=== PATIENT | female | born 1945 | race Caucasian/White ===

== ENCOUNTER 2017-09-26 07:43 | Emergency (ER) | payer MEDICARE, OTHER ==
[2017-09-26 07:43] VITALS: BMI 37.2
[2017-09-26 07:51] VITALS: RESP 20; TEMP 97.8
--- NOTE | 2017-09-26 09:15 | RAD ---
PROCEDURE: Radiographs of the right tibia and fibula. HISTORY: right leg injury COMPARISON: None available. TECHNIQUE: Frontal and lateral views obtained. FINDINGS: BONES: No fracture or destructive lesion. JOINT SPACES: Unremarkable. OTHER FINDINGS: Incidentally noted pes planus deformity with talonavicular osteoarthritis and plantar calcaneal spur. IMPRESSION: No fracture/ dislocation. Pes planus. Talonavicular osteoarthritis. Pes planus deformity.
--- NOTE | 2017-09-26 09:15 | C.PDOC ---
History Of Present Illness 72-year-old female, presents to the emergency department with complaints of leg pain. Patient states she was walking to dialysis yesterday and fell, due to increased arthritic pain. Pt reports she comes in today because she is able to ambulate, but it is painful. She is ambulatory at baseline with cane. Denies numbness/weakness, shortness of breath or chest pain. No other complaints at this time. Time Seen by Provider: 09/26/17 08:13 Chief Complaint (Nursing): Lower Extremity Problem/Injury History Per: Patient History/Exam Limitations: no limitations Past Medical History Reviewed: Historical Data, Nursing Documentation, Vital Signs Vital Signs: Last Vital Signs Temp 97.8 F 09/26/17 07:46 Pulse 89 09/26/17 10:37 Resp 20 09/26/17 10:37 BP 119/82 09/26/17 10:37 Pulse Ox 100 09/26/17 12:03 - Medical History PMH: Arthritis, HTN, Hypercholesterolemia, Chronic Kidney Disease Family History: States: No Known Family Hx - Social History Hx Alcohol Use: No Hx Substance Use: No - Immunization History Hx Tetanus Toxoid Vaccination: No Hx Influenza Vaccination: Yes (06/2017) Hx Pneumococcal Vaccination: Yes (06/2017) Review Of Systems Constitutional: Negative for: Fever Gastrointestinal: Negative for: Vomiting Neurological: Negative for: Weakness, Numbness Physical Exam - Physical Exam Appears: Non-toxic, No Acute Distress Skin: Normal Color, Warm, Dry, No Rash Head: Normacephalic Eye(s): bilateral: PERRL Nose: Normal Oral Mucosa: Moist Lips: Normal Appearing Neck: Normal ROM Chest: Symmetrical Cardiovascular: Rhythm Regular, No Murmur Respiratory: Normal Breath Sounds, No Accessory Muscle Use Extremity: No Deformity, No Swelling, Other (FROM of the B/L ankles, knees and hips. No swelling. there is minimal tenderness to lateral left thigh. Right tib/ fib with mild tenderness) Pulses: Left Dorsalis Pedis: Normal, Right Dorsalis Pedis: Normal Neurological/Psych: Oriented x3, Normal Speech ED Course And Treatment O2 Sat by Pulse Oximetry: 100 (RA) Pulse Ox Interpretation: Normal Medical Decision Making Medical Decision Making: Plan: * Tylenol * XRs * Reassess and DIsposition XRs are negative for fracture or dislocation. Pt feels better after Tylenol. Will be discharged for outpatient f/u with PMD. On re-exam, the patient is ambulatory with ease and steady gait in the ED using a cane. Disposition - Disposition Referrals: Guy Maynard III, MD [Staff Provider] - Disposition: HOME/ ROUTINE Disposition Time: 10:22 Condition: GOOD Additional Instructions: Follow up with the medical doctor within 1-2 days without fail. Return of worsened Prescriptions: Acetaminophen [Tylenol] 325 mg PO Q6 PRN #30 tab PRN Reason: Pain, Mild (1-3) Instructions: Hip Pain (DC) Forms: [employer] (Kazakh) Print Language: EMIRATI - Clinical Impression Clinical Impression: Contusion, hip, Contusion of leg - Scribe Statement The provider has reviewed the documentation as recorded by the Scribe (Ritu Cabezas) All medical record entries made by the Scribe were at my direction and personally dictated by me. I have reviewed the chart and agree that the record accurately reflects my personal performance of the history, physical exam, medical decision making, and the department course for this patient. I have also personally directed, reviewed, and agree with the discharge instructions and disposition.
--- NOTE | 2017-09-26 09:18 | RAD ---
PROCEDURE: Left Hip X-ray Radiographs. HISTORY: hip injury, COMPARISON: None. FINDINGS: BONES: Normal. No fracture. JOINTS: Normal. SOFT TISSUES: Normal. OTHER FINDINGS: None. IMPRESSION: Normal left hip radiographs.
--- NOTE | 2017-09-26 09:20 | RAD ---
PROCEDURE: Left Femur Radiographs. HISTORY: injury, thigh pain COMPARISON: None. TECHNIQUE: AP and Lateral Radiographs of the left femur. FINDINGS: FEMUR: Normal. No fracture. SOFT TISSUES: Normal. OTHER FINDINGS: None. IMPRESSION: Unremarkable radiographs of the left femur.
--- NOTE | 2017-09-26 09:20 | RAD ---
PROCEDURE: Radiographs of the left tibia and fibula. HISTORY: left leg injury COMPARISON: None available. TECHNIQUE: Frontal and lateral views obtained. FINDINGS: BONES: No fracture or destructive lesion. JOINT SPACES: Unremarkable. OTHER FINDINGS: None. IMPRESSION: Unremarkable radiographs of the left tibia and fibula.
[2017-09-26 10:38] VITALS: BP 119/82; PULSE 89
[2017-09-26 11:34] VITALS: O2SAT 100
== END 2017-09-26 10:38 | disposition home or self-care (01) ==
LOC: C.ER 07:43
DX: S70.02XA Contusion of left hip, initial encounter (principal); S70.01XA Contusion of right hip, initial encounter; S80.12XA Contusion of left lower leg, initial encounter; S80.11XA Contusion of right lower leg, initial encounter; W18.30XA Fall on same level, unspecified, initial encounter

== ENCOUNTER 2018-08-13 07:31 | Inpatient (IN) | payer MEDICARE, OTHER ==
[2018-08-13 07:32] VITALS: BMI 37.2
[2018-08-13] MEDS ORDERED: Dextrose 50% SYRINGE Inj (50 ml) IVP STA (08:39)
[2018-08-13] MEDS ORDERED: Calcium Gluconate 4.65 MEQ in Dextrose 5% In Water 100 ML IV STA (08:39)
[2018-08-13] MEDS ORDERED: (Novolin R) Insulin Human Regular 100 units/ml vial IV STA (08:39)
--- NOTE | 2018-08-13 08:39 | C.PDOC ---
History Of Present Illness VIA TRANS LIMITED DUE TO CLIN COND WORSENING SOB X 3 DAYS. LAST HD 08/10. UNABLE TO GO TODAY DUE TO DIFF WALKING. +L CHEST DISCOMFORT X 3 WEEKS. NO FEVER, COUGH. PS ABLE TO MAKE URINE Cardiac: Hypertension, ASHD/CAD Endocrine/Metabolic: Diabetes, Renal Disease Previous Surgical History: CABG. Cholecystectomy. C section. Left inguinal hernia repaIR ROS LIMITED EXAM MOD DIST LUNGS TACHYPNEA, RETRACTIONS B/L RALES CV RRR +2+ PITTING EDEMA BL REMAINDER NEG MDM NO PRIOR EKG ON RECORD. ?POSISBLE HYPER K, UNTREATED ESRD RENAL DR HUGGINS Time Seen by Provider: 08/13/18 08:20 Chief Complaint (Nursing): Weakness/Neurological Deficit History Per: Patient History/Exam Limitations: clinical condition Onset/Duration Of Symptoms: Days Current Symptoms Are (Timing): Still Present Severity: Moderate Past Medical History Reviewed: Historical Data, Nursing Documentation, Vital Signs Vital Signs: Last Vital Signs Temp 97.9 F 08/13/18 07:58 Pulse 84 08/13/18 07:58 Resp 20 08/13/18 07:58 BP 144/64 08/13/18 07:58 Pulse Ox 96 08/13/18 07:58 - Medical History PMH: Arthritis, HTN, Hypercholesterolemia, End Stage Renal Disease, Chronic Kidney Disease Other Surgeries: Hx of surgeries Family History: States: No Known Family Hx - Social History Hx Alcohol Use: No Hx Substance Use: No - Immunization History Hx Tetanus Toxoid Vaccination: No Hx Influenza Vaccination: No Hx Pneumococcal Vaccination: Yes (06/2017) Review Of Systems Constitutional: Negative for: Fever, Chills Cardiovascular: Positive for: Other (left chest discomfort) Respiratory: Positive for: Shortness of Breath. Negative for: Cough Physical Exam - Physical Exam Appears: Other (moderate distress) Skin: Normal Color, Warm, Dry Head: Atraumatic, Normacephalic Eye(s): bilateral: Normal Inspection Nose: Normal Oral Mucosa: Moist Neck: Supple Chest: Symmetrical Cardiovascular: Rhythm Regular (RRR) Respiratory: Rales (bilateral rales), No Rhonchi, No Wheezing, Other (tachypnea) Extremity: Normal ROM, Other (2+ pitting edema bilaterally) Neurological/Psych: Oriented x3, Normal Speech ED Course And Treatment - Laboratory Results Result Diagrams: 08/13/18 08:54 08/13/18 08:54 ECG: Interpreted By Me ECG Interpretation: Abnormal Interpretation Of ECG: WIDE COMPLEX QRS 170 QTC 466 O2 Sat by Pulse Oximetry: 96 (RA) Pulse Ox Interpretation: Normal - Radiology CXR: Interpreted by Me CXR Interpretation: Yes: Cardiomegaly, Other (CHF NO PRIOR) Progress - Re-Evaluation Re-evaluation Note: 08/13/18 10:11 d/w dr rosa c/f icu WILL EVAL DW DR JACOBS MED PIPE BENDING MACHINE OPERATOR WILL ADMIT PENDING CALLBACK DR HUGGINS 08/13/18 10:14 D/W DR BELLAMY c/f DR HUGGINS WILL HD IN ICU 08/13/18 10:58 CLEARED FOR TELE PER DR COLIN BELLAMY AWARE - Data Reviewed Data Reviewed: Lab, Diagnostic imaging, EKG, Old records - Critical Care Citical Care: Excluding Proc Time Critical Care Time: 90 minutes Medical Decision Making Medical Decision Making: Plan: --Labs --UA --ECG --CXR --Albuterol --Calcium Gluconate IV --Dextrose IV --Insulin IV Disposition - Disposition Disposition: HOSPITALIZED Disposition Time: 10:23 Condition: STABLE - POA Present On Arrival: None - Clinical Impression Clinical Impression: Hyperkalemia, ESRD (end stage renal disease) on dialysis - Scribe Statement The provider has reviewed the documentation as recorded by the Jasminibe Antonio Agrawal Provider Attestation: All medical record entries made by the Scribe were at my direction and personally dictated by me. I have reviewed the chart and agree that the record accurately reflects my personal performance of the history, physical exam, medical decision making, and the department course for this patient. I have also personally directed, reviewed, and agree with the discharge instructions and disposition. PROCEDURES - EJ/Peripheral Line Consent Obtained: verbal consent Time Out Performed: Yes Skin Cleansed in Sterile Fashion: Yes Size: Other (BUTTERFLY) IV Secured and Dressing Applied: No Patient Tolerated Procedure: Well
[2018-08-13] MEDS ORDERED: Dextrose 50% SYRINGE Inj (50 ml) ONE (08:49)
[2018-08-13] MEDS ORDERED: (Novolin R) Insulin Human Regular 100 units/ml vial ONE (08:49)
--- NOTE | 2018-08-13 09:14 | RAD ---
Date of service: 08/13/2018 PROCEDURE: CHEST RADIOGRAPH, 1 VIEW HISTORY: Palpations COMPARISON: None available. FINDINGS: LUNGS: Shallow lung volumes PLEURA: No pneumothorax seen. No large pleural effusions appreciated. CARDIOVASCULAR: There is presence of aortic atherosclerotic calcification on x-ray. Cardiomegaly. Moderate pulmonary venous congestion with central hilar vascular engorgement the apparent. Concomitant main pulmonary artery prominence perceived. Pulmonary arterial hypertension not excluded. No comparison studies to assess for stability. Midline sternotomy noted. OSSEOUS STRUCTURES: Midline sternotomy. VISUALIZED UPPER ABDOMEN: Normal. OTHER FINDINGS: None. IMPRESSION: Cardiomegaly and pulmonary venous congestion-CHF inferred. Other findings as above.
[2018-08-13] MEDS ORDERED: Albuterol 0.083% Inhal Sol (2.5 mg/3 mL) UD ONE (09:24)
[2018-08-13] MEDS: Albuterol 0.083% Inhal Sol (2.5 mg/3 mL) UD INH SCH (09:26)
[2018-08-13 09:32] LABS: LYMPH # 2.5 K/uL (1.0-4.3); MONO # 0.5 K/uL (0.0-0.8)
[2018-08-13 09:35] LABS: BASO % 0.4 % (0.0-2.0); EOS # 0.1 K/uL (0.0-0.7); EOS % 0.5 % (0.0-4.0); HEMOGLOBIN 12.8 g/dL (11.0-16.0); LYMPH % 22.2 % (20.0-40.0); MEAN CELL VOLUME 101.6 fL (81.0-99.0); MEAN CORPUSCULAR HEMOGLOBIN 30.9 pg (27.0-31.0); MEAN CORPUSCULAR HGB CONC 30.4 g/dL (33.0-37.0); MEAN PLATELET VOLUME 9.9 fL (7.2-11.7); MONO % 4.4 % (0.0-10.0); NEUT # 8.1 K/uL (1.8-7.0); NEUT % 72.5 % (50.0-75.0); RBC 4.16 Mil/uL (3.80-5.20); RED CELL DISTRIBUTION WIDTH 17.3 % (11.5-14.5); WHITE BLOOD COUNT 11.2 K/uL (4.8-10.8)
[2018-08-13 10:00] LABS: INR 1.3; PROTHROMBIN TIME 13.8 SECONDS (9.7-12.2)
[2018-08-13 10:01] LABS: VENOUS BLOOD GAS BASE EXCESS -11.6 mmol/L (0.0-2.0); VENOUS BLOOD GAS PCO2 60 mmHg (40-60); VENOUS BLOOD GAS PO2 48 mm/Hg (30-55)
[2018-08-13 10:22] LABS: ALB/GLOB RATIO 1.7 (1.0-2.1); ALBUMIN 4.7 g/dL (3.5-5.0); ALT/SGPT 20 U/L (9-52); AST/SGOT 41 U/L (14-36); BLOOD UREA NITROGEN 69 mg/dL (7-17); CALCIUM 9.4 mg/dl (8.6-10.4); GFR NON-AFRICAN AMERICAN 4
[2018-08-13 10:48] LABS: B-TYPE NATRIURETIC PEPTIDE 64500 pg/mL (0-900)
[2018-08-13 10:54] LABS: SQUAMOUS EPITHIAL 1 /hpf (0-5); URINE BACTERIA RARE (<OCC); URINE BILIRUBIN NEGATIVE (NEGATIVE); URINE BLOOD NEGATIVE (NEGATIVE); URINE CLARITY Clear (Clear); URINE COLOR Yellow (YELLOW); URINE GLUCOSE (UA) 1+ mg/dL (Normal); URINE LEUKOCYTE ESTERASE TRACE Leu/uL (Negative); URINE PROTEIN 2+ mg/dL (NEGATIVE); URINE UROBILINOGEN NORMAL mg/dL (0.2-1.0)
--- NOTE | 2018-08-13 10:56 | CP.PCM.CON ---
History of Present Illness - History of Present Illness History of Present Illness: ICU Consult Note for Dr. Whitman This is a 73 y o female with PMhx HTN, HLD, ESRD on HD (, Sun), DM2, who presented to the ED [facility] for c/o worsening shortness of breath and fatigue x 3 days. Reason for ICU consult was for Hyperkalemia and abnormal EKG on ED presentation showing possible wide-complex tachycardia as per ED staff. Pt seen and examined at bedside, denies any acute complaints currently. Pt's daughter at bedside reports that pt is compliant with taking prescribed medications at home and attending dialysis treatments usually, was supposed to go to dialysis tx today but states that pt called transportation early this am to cancel her ride because she was not feeling well. Admits to having nasal congestion for the past several days. Also admits generalized achiness in her upper and lower extremities b/l. Denies cough, fever, chills, chest pain, n/v/d/c, abd pain, urinary complaints, or other symptoms. PMhx: as noted above PSurgHx: s/p cardiac surgery in for murmur and "hole in heart" as per pt and pt's family Allergies: PCN (reaction unknown) Home meds: reviewed as per MAR Fam hx: denies Soc hx: denies smoking, EtOH or illicit drug use PMD: Dr. Streeter Review of Systems - Constitutional Constitutional: As Per HPI, Fatigue, Malaise. absent: Chills, Fever - Cardiovascular Cardiovascular: Dyspnea. absent: Chest Pain, Diaphoresis, Leg Edema, Palpitations, Syncope - Respiratory Respiratory: Dyspnea. absent: Cough, Wheezing, Pain on Inspiration, Chest Congestion - Gastrointestinal Gastrointestinal: absent: Abdominal Pain, Constipation, Diarrhea, Nausea, Vomiting - Genitourinary Genitourinary: absent: Change in Urinary Stream, Difficulty Urinating, Dysuria, Urinary Urgency Past Patient History - Past Medical History & Family History Past Medical History?: Yes - Past Social History Smoking Status: Never Smoked - CARDIAC Hx Hypercholesterolemia: Yes Hx Hypertension: Yes - PULMONARY Hx Respiratory Disorders: No - NEUROLOGICAL Hx Neurological Disorder: No - HEENT Hx HEENT Problems: No - RENAL Hx Chronic Kidney Disease: Yes - ENDOCRINE/METABOLIC Hx Endocrine Disorders: Yes Hx Diabetes Mellitus Type 2: Yes - HEMATOLOGICAL/ONCOLOGICAL Hx Blood Disorders: No - INTEGUMENTARY Hx Dermatological Problems: No - MUSCULOSKELETAL/RHEUMATOLOGICAL Hx Arthritis: Yes - GASTROINTESTINAL Hx Gastrointestinal Disorders: Yes Other/Comment: RECTAL BLEEDING - GENITOURINARY/GYNECOLOGICAL Hx Genitourinary Disorders: No - PSYCHIATRIC Hx Substance Use: No - SURGICAL HISTORY Hx Surgeries: Yes Hx Cardiac Catheterization: Yes Hx Herniorrhaphy: Yes Hx Hysterectomy: Yes Other/Comment: HEART SURGERY. ABDOMINAL SURGERY - ANESTHESIA Hx Anesthesia: Yes Hx Anesthesia Reactions: No Meds Allergies/Adverse Reactions: Allergies Allergy/AdvReac Type Severity Reaction Status Date / Time Penicillins Allergy RASH Verified 09/26/17 07:50 Physical Exam - Constitutional Appears: Non-toxic, No Acute Distress - Head Exam Head Exam: ATRAUMATIC, NORMOCEPHALIC - Eye Exam Eye Exam: EOMI, Normal appearance, PERRL - ENT Exam ENT Exam: Mucous Membranes Moist - Respiratory Exam Respiratory Exam: Clear to Auscultation Bilateral, Rales, NORMAL BREATHING PATTERN. absent: Rhonchi, Wheezes - Cardiovascular Exam Cardiovascular Exam: REGULAR RHYTHM, +S1, +S2. absent: Gallop, Rubs, Systolic Murmur - GI/Abdominal Exam GI & Abdominal Exam: Normal Bowel Sounds, Soft. absent: Distended, Organomega ly, Tenderness - Extremities Exam Extremities exam: Positive for: normal capillary refill, normal inspection, pedal pulses present. Negative for: tenderness - Neurological Exam Neurological exam: Alert, CN II-XII Intact, Oriented x3 - Skin Skin Exam: Dry, Intact, Warm Results - Vital Signs Recent Vital Signs: Last Vital Signs Temp 97.9 F 08/13/18 07:58 Pulse 89 08/13/18 10:32 Resp 21 08/13/18 10:32 BP 153/69 H 08/13/18 10:32 Pulse Ox 99 08/13/18 10:32 - Labs Result Diagrams: 08/13/18 08:54 08/13/18 08:54 Labs: Laboratory Results - last 24 hr 08/13/18 08/13/18 08/13/18 08:14 08:54 08:54 WBC 11.2 H RBC 4.16 Hgb 12.8 Hct 42.3 MCV 101.6 H MCH 30.9 MCHC 30.4 L RDW 17.3 H Plt Count 139 MPV 9.9 Neut % (Auto) 72.5 Lymph % (Auto) 22.2 Nelson % (Auto) 4.4 Eos % (Auto) 0.5 Baso % (Auto) 0.4 Neut # (Auto) 8.1 H Lymph # (Auto) 2.5 Nelson # (Auto) 0.5 Eos # (Auto) 0.1 Baso # (Auto) 0.0 PT INR APTT pO2 VBG pH VBG pCO2 VBG HCO3 VBG Total CO2 VBG O2 Sat (Calc) VBG Base Excess VBG Potassium Glucose Lactate Crit Value Called To Crit Value Called By Crit Value Read Back Blood Gas Notified Time Sodium 136 Potassium 8.6 H* D Chloride 98 Carbon Dioxide 19 L Anion Gap 28 H BUN 69 H Creatinine 9.9 H* Est GFR ( Amer) 5 Est GFR (Non-Af Amer) 4 POC Glucose (mg/dL) 351 H Random Glucose 402 H* D Calcium 9.4 Phosphorus 7.9 H Magnesium 4.1 H Total Bilirubin 0.9 AST 41 H ALT 20 Alkaline Phosphatase 129 H Troponin I < 0.0120 NT-Pro-B Natriuret Pep 21571 H Total Protein 7.6 Albumin 4.7 Globulin 2.9 Albumin/Globulin Ratio 1.7 Venous Blood Potassium Urine Color Urine Clarity Urine pH Ur Specific [place] Urine Protein Urine Glucose (UA) Urine Ketones Urine Blood Urine Nitrate Urine Bilirubin Urine Urobilinogen Ur Leukocyte Esterase Urine WBC (Auto) Urine RBC (Auto) Ur Squamous Epith Cells Urine Bacteria 08/13/18 08/13/18 08/13/18 09:45 09:52 10:06 WBC RBC Hgb Hct MCV MCH MCHC RDW Plt Count MPV Neut % (Auto) Lymph % (Auto) Nelson % (Auto) Eos % (Auto) Baso % (Auto) Neut # (Auto) Lymph # (Auto) Nelson # (Auto) Eos # (Auto) Baso # (Auto) PT 13.8 H INR 1.3 APTT 36 H pO2 48 VBG pH 7.10 L* VBG pCO2 60 VBG HCO3 15.0 VBG Total CO2 20.4 L VBG O2 Sat (Calc) 68.9 H VBG Base Excess -11.6 L VBG Potassium 8.8 H* Glucose 394 H Lactate 6.6 H* Crit Value Called To saige Velarde Crit Value Called By [place] will Crit Value Read Back Y Blood Gas Notified Time 1001 Sodium 137.0 Potassium Chloride 99.0 Carbon Dioxide Anion Gap BUN Creatinine Est GFR ( Amer) Est GFR (Non-Af Amer) POC Glucose (mg/dL) 380 H Random Glucose Calcium Phosphorus Magnesium Total Bilirubin AST ALT Alkaline Phosphatase Troponin I NT-Pro-B Natriuret Pep Total Protein Albumin Globulin Albumin/Globulin Ratio Venous Blood Potassium 8.8 H* Urine Color Urine Clarity Urine pH Ur Specific [place] Urine Protein Urine Glucose (UA) Urine Ketones Urine Blood Urine Nitrate Urine Bilirubin Urine Urobilinogen Ur Leukocyte Esterase Urine WBC (Auto) Urine RBC (Auto) Ur Squamous Epith Cells Urine Bacteria 08/13/18 10:32 WBC RBC Hgb Hct MCV MCH MCHC RDW Plt Count MPV Neut % (Auto) Lymph % (Auto) Nelson % (Auto) Eos % (Auto) Baso % (Auto) Neut # (Auto) Lymph # (Auto) Nelson # (Auto) Eos # (Auto) Baso # (Auto) PT INR APTT pO2 VBG pH VBG pCO2 VBG HCO3 VBG Total CO2 VBG O2 Sat (Calc) VBG Base Excess VBG Potassium Glucose Lactate Crit Value Called To Crit Value Called By Crit Value Read Back Blood Gas Notified Time Sodium Potassium Chloride Carbon Dioxide Anion Gap BUN Creatinine Est GFR ( Amer) Est GFR (Non-Af Amer) POC Glucose (mg/dL) Random Glucose Calcium Phosphorus Magnesium Total Bilirubin AST ALT Alkaline Phosphatase Troponin I NT-Pro-B Natriuret Pep Total Protein Albumin Globulin Albumin/Globulin Ratio Venous Blood Potassium Urine Color Yellow Urine Clarity Clear Urine pH 7.0 Ur Specific [place] 1.013 Urine Protein 2+ H Urine Glucose (UA) 1+ Urine Ketones Negative Urine Blood Negative Urine Nitrate Negative Urine Bilirubin Negative Urine Urobilinogen Normal Ur Leukocyte Esterase Trace Urine WBC (Auto) 4 Urine RBC (Auto) 1 Ur Squamous Epith Cells 1 Urine Bacteria Rare Assessment & Plan - Assessment and Plan (Free Text) Assessment: This is a 73 y o female with PMhx HTN, HLD, ESRD on HD (, Sun), DM2, who presented to the ED [facility] for c/o worsening shortness of breath and fatigue x 3 days. Reason for ICU consult was for Hyperkalemia and abnormal EKG on ED presentation showing possible wide-complex tachycardia as per ED staff. Plan: -Repeat EKG demonstrates possible RBBB, in sinus rhythm, possible T wave inversions, interval improvement compared to prior EKG on admission in ED -Recommend pt undergo emergent hemodialysis to correct electrolyte abnormalities, further recommendations as per Nephrology -Pt hemodynamically stable at this time -Recommend glycemic control for elevated blood sugars on ED presentation -Does not meet criteria for ICU admission at this time, please re-consult if needed. Can be admitted to telemetry floor for further management. Pt seen, examined with, and plan discussed with Dr. Whitman, attending physician. Chung Dang DO PGY-1, Station Installation Supervisor Pager #[phone]
--- NOTE | 2018-08-13 12:24 | CP.PCM.CON ---
History of Present Illness - History of Present Illness History of Present Illness: Nephrology Consultation Note: Assessment: critical hyperkalemia and wide complex rhythm ? CHF exacerbation with fluid overload Hypertensive Chronic Kidney Disease (I12.0), DKD (E11.22) End stage renal disease (N18.6) dependence on hemodialysis (Z99.2) (TTS) via AVF Anemia (D64.9), Hyperphosphatemia (E83.39), Secondary Hyperparathyroidism (E21.1), HTN (I12.0) Hypermagnesemia CAD s/p CABG lactic acidosis with hyperglycemia and uncontrolled DM Plan: Will plan for HD today as ordered. Continue with Nephrovite 1 tab/day. PRBC as needed for anemia. not on ALLYSON with dialysis as last Hb 12.8 Continue with phos binders, last phos level: 7.9 BP control with meds as ordered. Patient not on RAAS ben as with severe hyperkalemia Glycemic control, Dialysis consistent diet Further work up/management as per primary team Dose meds/antibiotics (if needed) for ESRD status. Avoid fleets enema/magnesium based laxatives. f/up lactic acid level Thanks for allowing me to participate in care of your patient. Will follow patient with you. Please call if any Qs. d/w ER Dr Ankit Delcid Office: [phone] Chief Complaint; SOB HPI: Pt is a 73 F with hx of ESRD on hemodialysis (TTS) via AVF , last dialysis Sat, chronic anemia, hyperphosphatemia, secondary hyperparathyroidism, hypertension DM, CAD s/p CABG presented with complaints of SOB and found to have fluid overload ? CHF with hyperkalemia and wide complex rhythm which improved with medical management Renal consult requested for ESRD management. pt feels better now ROS: feels sick, has gen body aches and weakness Cardiovascular: No chest pain. Pulmonary: c/o shortness of breath. has minimal cough. Gastrointestinal: denies abdominal pain No nausea. No vomiting. Genitourinary: No pain while urinating. Denies blood in urine. All other negative except as mentioned in HPI Physical Examination: General Appearance: Comfortable, in no acute respiratory distress, co-operative . ill appearing Vitals reviewed and noted as below Head; Atraumatic, normocephalic ENT: no ulcers no thrush. Tongue is midline. Oropharynx: no rash or ulcers. EYES: PERRLA, anciteric. EOMI intact Neck; supple no lymphadenopathy, no thyromegaly or bruit Lungs: mildly increased respiratory rate/effort. Breath sounds bilateral reduced at bases with crackles Heart: Normal rate. s1s2 normal. No rub or gallop. Extremities: trace edema. No varicose veins Neurological: Patient is alert, awake and oriented to person, place and time. No focal deficit. Strength bilateral appropriate and equal Skin: Warm and dry. Normal turgor. No rash. Palpitation: Normal elasticity for age Abdomen: Abdomen is soft. Bowel sounds +. There is no abdominal tenderness, no guarding/rigidity or organomegaly Psych: limited insight and normal affect/mood MSK: no joint tenderness or swelling. Digits and nails normal, no deformity : kidney or bladder not palpable Access: AVF Labs/imaging reviewed. Past medical history, past surgical history, family history, social history, allergy reviewed and noted as below Family Hx: no hx of CKD. Non contributory Past Patient History - Past Medical History & Family History Past Medical History?: Yes - Past Social History Smoking Status: Never Smoked - CARDIAC Hx Hypercholesterolemia: Yes Hx Hypertension: Yes - PULMONARY Hx Respiratory Disorders: No - NEUROLOGICAL Hx Neurological Disorder: No - HEENT Hx HEENT Problems: No - RENAL Hx Chronic Kidney Disease: Yes - ENDOCRINE/METABOLIC Hx Endocrine Disorders: Yes Hx Diabetes Mellitus Type 2: Yes - HEMATOLOGICAL/ONCOLOGICAL Hx Blood Disorders: No - INTEGUMENTARY Hx Dermatological Problems: No - MUSCULOSKELETAL/RHEUMATOLOGICAL Hx Arthritis: Yes - GASTROINTESTINAL Hx Gastrointestinal Disorders: Yes Other/Comment: RECTAL BLEEDING - GENITOURINARY/GYNECOLOGICAL Hx Genitourinary Disorders: No - PSYCHIATRIC Hx Substance Use: No - SURGICAL HISTORY Hx Surgeries: Yes Hx Cardiac Catheterization: Yes Hx Herniorrhaphy: Yes Hx Hysterectomy: Yes Other/Comment: HEART SURGERY. ABDOMINAL SURGERY - ANESTHESIA Hx Anesthesia: Yes Hx Anesthesia Reactions: No Meds Allergies/Adverse Reactions: Allergies Allergy/AdvReac Type Severity Reaction Status Date / Time Penicillins Allergy RASH Verified 09/26/17 07:50 Results - Vital Signs Recent Vital Signs: Last Vital Signs Temp 97.6 F 08/13/18 11:40 Pulse 75 08/13/18 11:40 Resp 22 08/13/18 11:40 BP 112/63 08/13/18 11:55 Pulse Ox 100 08/13/18 11:40 - Labs Result Diagrams: 08/13/18 08:54 08/13/18 08:54 Labs: Laboratory Results - last 24 hr 08/13/18 08/13/18 08/13/18 08:14 08:54 08:54 WBC 11.2 H RBC 4.16 Hgb 12.8 Hct 42.3 MCV 101.6 H MCH 30.9 MCHC 30.4 L RDW 17.3 H Plt Count 139 MPV 9.9 Neut % (Auto) 72.5 Lymph % (Auto) 22.2 [place] % (Auto) 4.4 Eos % (Auto) 0.5 Baso % (Auto) 0.4 Neut # (Auto) 8.1 H Lymph # (Auto) 2.5 [place] # (Auto) 0.5 Eos # (Auto) 0.1 Baso # (Auto) 0.0 PT INR APTT pO2 VBG pH VBG pCO2 VBG HCO3 VBG Total CO2 VBG O2 Sat (Calc) VBG Base Excess VBG Potassium Glucose Lactate Crit Value Called To Crit Value Called By Crit Value Read Back Blood Gas Notified Time Sodium 136 Potassium 8.6 H* D Chloride 98 Carbon Dioxide 19 L Anion Gap 28 H BUN 69 H Creatinine 9.9 H* Est GFR ( Amer) 5 Est GFR (Non-Af Amer) 4 POC Glucose (mg/dL) 351 H Random Glucose 402 H* D Calcium 9.4 Phosphorus 7.9 H Magnesium 4.1 H Total Bilirubin 0.9 AST 41 H ALT 20 Alkaline Phosphatase 129 H Troponin I < 0.0120 NT-Pro-B Natriuret Pep 11583 H Total Protein 7.6 Albumin 4.7 Globulin 2.9 Albumin/Globulin Ratio 1.7 Venous Blood Potassium Urine Color Urine Clarity Urine pH Ur Specific [place] Urine Protein Urine Glucose (UA) Urine Ketones Urine Blood Urine Nitrate Urine Bilirubin Urine Urobilinogen Ur Leukocyte Esterase Urine WBC (Auto) Urine RBC (Auto) Ur Squamous Epith Cells Urine Bacteria 08/13/18 08/13/18 08/13/18 09:45 09:52 10:06 WBC RBC Hgb Hct MCV MCH MCHC RDW Plt Count MPV Neut % (Auto) Lymph % (Auto) [place] % (Auto) Eos % (Auto) Baso % (Auto) Neut # (Auto) Lymph # (Auto) [place] # (Auto) Eos # (Auto) Baso # (Auto) PT 13.8 H INR 1.3 APTT 36 H pO2 48 VBG pH 7.10 L* VBG pCO2 60 VBG HCO3 15.0 VBG Total CO2 20.4 L VBG O2 Sat (Calc) 68.9 H VBG Base Excess -11.6 L VBG Potassium 8.8 H* Glucose 394 H Lactate 6.6 H* Crit Value Called To saige Velarde Crit Value Called By Gaurav solis Crit Value Read Back Y Blood Gas Notified Time 1001 Sodium 137.0 Potassium Chloride 99.0 Carbon Dioxide Anion Gap BUN Creatinine Est GFR ( Amer) Est GFR (Non-Af Amer) POC Glucose (mg/dL) 380 H Random Glucose Calcium Phosphorus Magnesium Total Bilirubin AST ALT Alkaline Phosphatase Troponin I NT-Pro-B Natriuret Pep Total Protein Albumin Globulin Albumin/Globulin Ratio Venous Blood Potassium 8.8 H* Urine Color Urine Clarity Urine pH Ur Specific [place] Urine Protein Urine Glucose (UA) Urine Ketones Urine Blood Urine Nitrate Urine Bilirubin Urine Urobilinogen Ur Leukocyte Esterase Urine WBC (Auto) Urine RBC (Auto) Ur Squamous Epith Cells Urine Bacteria 08/13/18 08/13/18 10:32 11:54 WBC RBC Hgb Hct MCV MCH MCHC RDW Plt Count MPV Neut % (Auto) Lymph % (Auto) [place] % (Auto) Eos % (Auto) Baso % (Auto) Neut # (Auto) Lymph # (Auto) [place] # (Auto) Eos # (Auto) Baso # (Auto) PT INR APTT pO2 VBG pH VBG pCO2 VBG HCO3 VBG Total CO2 VBG O2 Sat (Calc) VBG Base Excess VBG Potassium Glucose Lactate Crit Value Called To Crit Value Called By Crit Value Read Back Blood Gas Notified Time Sodium Potassium Chloride Carbon Dioxide Anion Gap BUN Creatinine Est GFR ( Amer) Est GFR (Non-Af Amer) POC Glucose (mg/dL) 239 H Random Glucose Calcium Phosphorus Magnesium Total Bilirubin AST ALT Alkaline Phosphatase Troponin I NT-Pro-B Natriuret Pep Total Protein Albumin Globulin Albumin/Globulin Ratio Venous Blood Potassium Urine Color Yellow Urine Clarity Clear Urine pH 7.0 Ur Specific [place] 1.013 Urine Protein 2+ H Urine Glucose (UA) 1+ Urine Ketones Negative Urine Blood Negative Urine Nitrate Negative Urine Bilirubin Negative Urine Urobilinogen Normal Ur Leukocyte Esterase Trace Urine WBC (Auto) 4 Urine RBC (Auto) 1 Ur Squamous Epith Cells 1 Urine Bacteria Rare
[2018-08-13 14:01] LABS: VENOUS BLOOD GAS BASE EXCESS -2.8 mmol/L (0.0-2.0); VENOUS BLOOD GAS PCO2 32 mmHg (40-60); VENOUS BLOOD GAS PO2 183 mm/Hg (30-55); VENOUS BLOOD PH 7.42 (7.32-7.43)
[2018-08-13] MEDS ORDERED: Glucagon Recombinant 1 mg Inj IM PRN (16:22)
[2018-08-13] MEDS ORDERED: Dextrose 50% SYRINGE Inj (50 ml) IVP PRN (16:22)
[2018-08-13] MEDS: (Novolog) Insulin Aspart, Recombinant 100 u/ml 10 ml vial SC SCH ×2 (17:40→21:39)
--- NOTE | 2018-08-13 23:55 | CP.PCM.HP ---
Present on Admission - Present on Admission Any Indicators Present on Admission: No Past Patient History - Past Medical History & Family History Past Medical History?: Yes - Past Social History Smoking Status: Never Smoked - CARDIAC Hx Cardiac Disorders: Yes Hx Heart Murmur: Yes Hx Hypercholesterolemia: Yes Hx Hypertension: Yes Other/Comment: Hx open heart surgery ? - PULMONARY Hx Respiratory Disorders: No - NEUROLOGICAL Hx Neurological Disorder: Yes Hx Dizziness: Yes - HEENT Hx HEENT Problems: Yes Other/Comment: uses reading eyeglasses - RENAL Hx Chronic Kidney Disease: Yes Hx Dialysis: Yes (since 2012) Type of Dialysis Access: Left upper arm AVF Date of Last Dialysis Treatment: 08/13/18 Hx Renal (Kidney) Cancer: Yes - ENDOCRINE/METABOLIC Hx Endocrine Disorders: Yes Hx Diabetes Mellitus Type 2: Yes - HEMATOLOGICAL/ONCOLOGICAL Hx Blood Disorders: Yes Hx Anemia: Yes Hx Blood Transfusions: Yes Hx Blood Transfusion Reaction: No - INTEGUMENTARY Hx Dermatological Problems: No - MUSCULOSKELETAL/RHEUMATOLOGICAL Hx Musculoskeletal Disorders: Yes Hx Arthritis: Yes Hx Falls: No Hx Unsteady Gait: Yes (uses cane) - GASTROINTESTINAL Hx Gastrointestinal Disorders: No Other/Comment: RECTAL BLEEDING - GENITOURINARY/GYNECOLOGICAL Hx Genitourinary Disorders: Yes Other/Comment: HD pt. urinates a little bit - PSYCHIATRIC Hx Psychophysiologic Disorder: No Hx Substance Use: No - SURGICAL HISTORY Hx Surgeries: Yes Hx Cardiac Catheterization: Yes Hx Herniorrhaphy: Yes Other/Comment: HEART SURGERY. ABDOMINAL SURGERY 2 years ago - ANESTHESIA Hx Anesthesia: Yes Hx Anesthesia Reactions: No Hx Malignant Hyperthermia: No Has any member of the family had a problem w/ anesthesia?: No Meds Allergies/Adverse Reactions: Allergies Allergy/AdvReac Type Severity Reaction Status Date / Time Penicillins Allergy RASH Verified 09/26/17 07:50 Results - Vital Signs Recent Vital Signs: Last Vital Signs Temp 97.3 F L 08/13/18 16:40 Pulse 89 08/13/18 23:20 Resp 20 08/13/18 16:40 BP 104/67 08/13/18 16:40 Pulse Ox 100 08/13/18 16:40 - Labs Result Diagrams: 08/13/18 08:54 08/13/18 08:54 Labs: Laboratory Results - last 24 hr 08/13/18 08/13/18 08/13/18 08:14 08:54 08:54 WBC 11.2 H RBC 4.16 Hgb 12.8 Hct 42.3 MCV 101.6 H MCH 30.9 MCHC 30.4 L RDW 17.3 H Plt Count 139 MPV 9.9 Neut % (Auto) 72.5 Lymph % (Auto) 22.2 [place] % (Auto) 4.4 Eos % (Auto) 0.5 Baso % (Auto) 0.4 Neut # (Auto) 8.1 H Lymph # (Auto) 2.5 [place] # (Auto) 0.5 Eos # (Auto) 0.1 Baso # (Auto) 0.0 PT INR APTT pO2 VBG pH VBG pCO2 VBG HCO3 VBG Total CO2 VBG O2 Sat (Calc) VBG Base Excess VBG Potassium Glucose Lactate Crit Value Called To Crit Value Called By Crit Value Read Back Blood Gas Notified Time Sodium 136 Potassium 8.6 H* D Chloride 98 Carbon Dioxide 19 L Anion Gap 28 H BUN 69 H Creatinine 9.9 H* Est GFR ( Amer) 5 Est GFR (Non-Af Amer) 4 POC Glucose (mg/dL) 351 H Random Glucose 402 H* D Calcium 9.4 Phosphorus 7.9 H Magnesium 4.1 H Total Bilirubin 0.9 AST 41 H ALT 20 Alkaline Phosphatase 129 H Troponin I < 0.0120 NT-Pro-B Natriuret Pep 27940 H Total Protein 7.6 Albumin 4.7 Globulin 2.9 Albumin/Globulin Ratio 1.7 Venous Blood Potassium Urine Color Urine Clarity Urine pH Ur Specific [place] Urine Protein Urine Glucose (UA) Urine Ketones Urine Blood Urine Nitrate Urine Bilirubin Urine Urobilinogen Ur Leukocyte Esterase Urine WBC (Auto) Urine RBC (Auto) Ur Squamous Epith Cells Urine Bacteria 08/13/18 08/13/18 08/13/18 09:45 09:52 10:06 WBC RBC Hgb Hct MCV MCH MCHC RDW Plt Count MPV Neut % (Auto) Lymph % (Auto) [place] % (Auto) Eos % (Auto) Baso % (Auto) Neut # (Auto) Lymph # (Auto) [place] # (Auto) Eos # (Auto) Baso # (Auto) PT 13.8 H INR 1.3 APTT 36 H pO2 48 VBG pH 7.10 L* VBG pCO2 60 VBG HCO3 15.0 VBG Total CO2 20.4 L VBG O2 Sat (Calc) 68.9 H VBG Base Excess -11.6 L VBG Potassium 8.8 H* Glucose 394 H Lactate 6.6 H* Crit Value Called To saige Velarde Crit Value Called By Gaurav solis Crit Value Read Back Y Blood Gas Notified Time 1001 Sodium 137.0 Potassium Chloride 99.0 Carbon Dioxide Anion Gap BUN Creatinine Est GFR ( Amer) Est GFR (Non-Af Amer) POC Glucose (mg/dL) 380 H Random Glucose Calcium Phosphorus Magnesium Total Bilirubin AST ALT Alkaline Phosphatase Troponin I NT-Pro-B Natriuret Pep Total Protein Albumin Globulin Albumin/Globulin Ratio Venous Blood Potassium 8.8 H* Urine Color Urine Clarity Urine pH Ur Specific [place] Urine Protein Urine Glucose (UA) Urine Ketones Urine Blood Urine Nitrate Urine Bilirubin Urine Urobilinogen Ur Leukocyte Esterase Urine WBC (Auto) Urine RBC (Auto) Ur Squamous Epith Cells Urine Bacteria 08/13/18 08/13/18 08/13/18 10:32 11:54 13:52 WBC RBC Hgb Hct MCV MCH MCHC RDW Plt Count MPV Neut % (Auto) Lymph % (Auto) [place] % (Auto) Eos % (Auto) Baso % (Auto) Neut # (Auto) Lymph # (Auto) [place] # (Auto) Eos # (Auto) Baso # (Auto) PT INR APTT pO2 183 H VBG pH 7.42 VBG pCO2 32 L VBG HCO3 22.8 VBG Total CO2 21.8 L VBG O2 Sat (Calc) 99.6 H VBG Base Excess -2.8 L VBG Potassium 2.5 L* Glucose 87 Lactate 1.0 Crit Value Called To javier Breen md Crit Value Called By Ange hargrove, Crit Value Read Back Y Blood Gas Notified Time 1401 Sodium 150.0 H Potassium Chloride 118.0 H Carbon Dioxide Anion Gap BUN Creatinine Est GFR ( Amer) Est GFR (Non-Af Amer) POC Glucose (mg/dL) 239 H Random Glucose Calcium Phosphorus Magnesium Total Bilirubin AST ALT Alkaline Phosphatase Troponin I NT-Pro-B Natriuret Pep Total Protein Albumin Globulin Albumin/Globulin Ratio Venous Blood Potassium 2.5 L* Urine Color Yellow Urine Clarity Clear Urine pH 7.0 Ur Specific [place] 1.013 Urine Protein 2+ H Urine Glucose (UA) 1+ Urine Ketones Negative Urine Blood Negative Urine Nitrate Negative Urine Bilirubin Negative Urine Urobilinogen Normal Ur Leukocyte Esterase Trace Urine WBC (Auto) 4 Urine RBC (Auto) 1 Ur Squamous Epith Cells 1 Urine Bacteria Rare 08/13/18 16:55 WBC RBC Hgb Hct MCV MCH MCHC RDW Plt Count MPV Neut % (Auto) Lymph % (Auto) [place] % (Auto) Eos % (Auto) Baso % (Auto) Neut # (Auto) Lymph # (Auto) [place] # (Auto) Eos # (Auto) Baso # (Auto) PT INR APTT pO2 VBG pH VBG pCO2 VBG HCO3 VBG Total CO2 VBG O2 Sat (Calc) VBG Base Excess VBG Potassium Glucose Lactate Crit Value Called To Crit Value Called By Crit Value Read Back Blood Gas Notified Time Sodium Potassium Chloride Carbon Dioxide Anion Gap BUN Creatinine Est GFR ( Amer) Est GFR (Non-Af Amer) POC Glucose (mg/dL) 179 H Random Glucose Calcium Phosphorus Magnesium Total Bilirubin AST ALT Alkaline Phosphatase Troponin I NT-Pro-B Natriuret Pep Total Protein Albumin Globulin Albumin/Globulin Ratio Venous Blood Potassium Urine Color Urine Clarity Urine pH Ur Specific [place] Urine Protein Urine Glucose (UA) Urine Ketones Urine Blood Urine Nitrate Urine Bilirubin Urine Urobilinogen Ur Leukocyte Esterase Urine WBC (Auto) Urine RBC (Auto) Ur Squamous Epith Cells Urine Bacteria
[2018-08-14] MEDS: (Novolog) Insulin Aspart, Recombinant 100 u/ml 10 ml vial SC SCH ×4 (08:32→21:39)
--- NOTE | 2018-08-14 15:14 | CP.PCM.PN ---
Subjective - Date & Time of Evaluation Date of Evaluation: 08/14/18 Time of Evaluation: 15:13 - Subjective Subjective: Nephrology Consultation Note: Assessment: stable hyperkalemia and wide complex rhythm ? CHF exacerbation with fluid overload Hypertensive Chronic Kidney Disease (I12.0), DKD (E11.22) End stage renal disease (N18.6) dependence on hemodialysis (Z99.2) (TTS) via AVF Anemia (D64.9), Hyperphosphatemia (E83.39), Secondary Hyperparathyroidism (E21.1), HTN (I12.0) Hypermagnesemia CAD s/p CABG lactic acidosis with hyperglycemia and uncontrolled DM Plan: Will plan for HD TTS as ordered. Continue with Nephrovite 1 tab/day. PRBC as needed for anemia. not on [place]YSON with dialysis as last Hb 12.8 Continue with phos binders, last phos level: 7.9 BP control with meds as ordered. Patient not on RAAS ben as with severe hyperkalemia Glycemic control, Dialysis consistent diet Further work up/management as per primary team Dose meds/antibiotics (if needed) for ESRD status. Avoid fleets enema/magnesium based laxatives. Thanks for allowing me to participate in care of your patient. Will follow ravi ent with you. Please call if any Qs. Dr Ankit Delcid Office: [phone] Chief Complaint; SOB HPI: Pt is a 73 F with hx of ESRD on hemodialysis (TTS) via AVF , last dialysis Sat, chronic anemia, hyperphosphatemia, secondary hyperparathyroidism, hypertension DM, CAD s/p CABG presented with complaints of SOB and found to have fluid overload ? CHF with hyperkalemia and wide complex rhythm which improved with medical management Renal consult requested for ESRD management. pt feels better now ROS: feels better Cardiovascular: No chest pain. Pulmonary: no shortness of breath. has minimal cough. Gastrointestinal: denies abdominal pain No nausea. No vomiting. Genitourinary: No pain while urinating. Denies blood in urine. All other negative except as mentioned in HPI Physical Examination: General Appearance: Comfortable, in no acute respiratory distress, co-operative . better appearing Vitals reviewed and noted as below Head; Atraumatic, normocephalic ENT: no ulcers no thrush. Tongue is midline. Oropharynx: no rash or ulcers. EYES: PERRLA, anciteric. EOMI intact Neck; supple no lymphadenopathy, no thyromegaly or bruit Lungs: normal respiratory rate/effort. Breath sounds bilateral clearer Heart: Normal rate. s1s2 normal. No rub or gallop. Extremities: no edema. No varicose veins Neurological: Patient is alert, awake and oriented to person, place and time. No focal deficit. Strength bilateral appropriate and equal Skin: Warm and dry. Normal turgor. No rash. Palpitation: Normal elasticity for age Abdomen: Abdomen is soft. Bowel sounds +. There is no abdominal tenderness, no guarding/rigidity or organomegaly Psych: limited insight and normal affect/mood MSK: no joint tenderness or swelling. Digits and nails normal, no deformity : kidney or bladder not palpable Access: AVF Labs/imaging reviewed. Past medical history, past surgical history, family history, social history, allergy reviewed and noted as below Family Hx: no hx of CKD. Non contributory Objective - Vital Signs/Intake and Output Vital Signs (last 24 hours): Temp Pulse Resp BP Pulse Ox 98.1 F 98 H 20 111/62 96 08/14/18 07:00 08/14/18 12:39 08/14/18 07:00 08/14/18 07:00 08/14/18 07:00 Intake and Output: 08/14/18 08/14/18 06:59 18:59 Intake Total 240 300 Balance 240 300 - Medications Medications: Current Medications Acetaminophen (Tylenol 325mg Tab) 650 mg PO Q6 PRN PRN Reason: Fever >100.4 F Carvedilol (Coreg) 3.125 mg PO BID [facility] Last Admin: 08/14/18 09:10 Dose: 3.125 mg Cinacalcet (Sensipar) 30 mg PO DAILY [facility] Last Admin: 08/14/18 10:28 Dose: 30 mg Dextrose (Dextrose 50% Inj) 0 ml IVP .STAT PRN; Protocol PRN Reason: Hypoglycemia Protocol Dextrose (Glutose 15) 0 gm PO .ONCE PRN; Protocol PRN Reason: Hypoglycemia Protocol Folic Acid (Folic Acid) 1 mg PO DAILY [facility] Last Admin: 08/14/18 09:10 Dose: 1 mg Glucagon (Glucagen Diagnostic Kit) 0 mg IM .STAT PRN; Protocol PRN Reason: Hypoglycemia Protocol Heparin Sodium (Porcine) (Heparin) 5,000 units SC Q12 [facility] Last Admin: 08/14/18 09:10 Dose: 5,000 units Dextrose (Dextrose 5% In Water 1000 Ml) 1,000 mls @ 0 mls/hr IV .Q0M PRN; Protocol PRN Reason: Hypoglycemia Protocol Insulin Aspart (Novolog) 0 unit SC ACHS [facility]; Protocol Last Admin: 08/14/18 11:41 Dose: Not Given Rosuvastatin Calcium (Crestor) 5 mg PO HS [facility] Last Admin: 08/13/18 21:40 Dose: 5 mg Sevelamer Carbonate (Renvela) 800 mg PO TIDCC [facility] Last Admin: 08/14/18 11:03 Dose: 800 mg Sitagliptin Phosphate (Januvia) 25 mg PO DAILY [facility] Last Admin: 08/14/18 09:10 Dose: 25 mg Vitamin B Complex/Vit C/Folic Acid (Nephro-Rosy) 1 tab PO 0800 [facility] - Labs Labs: 08/13/18 08:54 08/13/18 08:54 PT 13.8 SECONDS (9.7-12.2) H 08/13/18 09:45 INR 1.3 08/13/18 09:45 APTT 36 SECONDS (21-34) H 08/13/18 09:45
--- NOTE | 2018-08-14 23:44 | CP.PCM.PN ---
Subjective - Date & Time of Evaluation Date of Evaluation: 08/14/18 Time of Evaluation: 12:22 - Subjective Subjective: dictated Objective - Vital Signs/Intake and Output Vital Signs (last 24 hours): Temp Pulse Resp BP Pulse Ox 97.6 F 88 20 105/69 98 08/14/18 16:00 08/14/18 17:30 08/14/18 16:00 08/14/18 16:00 08/14/18 16:00 Intake and Output: 08/14/18 08/15/18 18:59 06:59 Intake Total 300 Balance 300 - Medications Medications: Current Medications Acetaminophen (Tylenol 325mg Tab) 650 mg PO Q6 PRN PRN Reason: Fever >100.4 F Carvedilol (Coreg) 3.125 mg PO BID [facility] Last Admin: 08/14/18 22:09 Dose: 3.125 mg Cinacalcet (Sensipar) 30 mg PO DAILY [facility] Last Admin: 08/14/18 10:28 Dose: 30 mg Dextrose (Dextrose 50% Inj) 0 ml IVP .STAT PRN; Protocol PRN Reason: Hypoglycemia Protocol Dextrose (Glutose 15) 0 gm PO .ONCE PRN; Protocol PRN Reason: Hypoglycemia Protocol Folic Acid (Folic Acid) 1 mg PO DAILY [facility] Last Admin: 08/14/18 09:10 Dose: 1 mg Glucagon (Glucagen Diagnostic Kit) 0 mg IM .STAT PRN; Protocol PRN Reason: Hypoglycemia Protocol Heparin Sodium (Porcine) (Heparin) 5,000 units SC Q12 [facility] Last Admin: 08/14/18 22:10 Dose: 5,000 units Dextrose (Dextrose 5% In Water 1000 Ml) 1,000 mls @ 0 mls/hr IV .Q0M PRN; Protocol PRN Reason: Hypoglycemia Protocol Insulin Aspart (Novolog) 0 unit SC ACHS [facility]; Protocol Last Admin: 08/14/18 21:39 Dose: Not Given Rosuvastatin Calcium (Crestor) 5 mg PO HS [facility] Last Admin: 08/14/18 22:09 Dose: 5 mg Sevelamer Carbonate (Renvela) 800 mg PO TIDCC [facility] Last Admin: 08/14/18 17:45 Dose: 800 mg Sitagliptin Phosphate (Januvia) 25 mg PO DAILY [facility] Last Admin: 08/14/18 09:10 Dose: 25 mg Vitamin B Complex/Vit C/Folic Acid (Nephro-Rosy) 1 tab PO 0800 [facility] - Labs Labs: 08/13/18 08:54 08/13/18 08:54 PT 13.8 SECONDS (9.7-12.2) H 08/13/18 09:45 INR 1.3 08/13/18 09:45 APTT 36 SECONDS (21-34) H 08/13/18 09:45
--- NOTE | 2018-08-15 04:07 | PN ---
DATE: 08/14/2018 SUBJECTIVE: The patient is feeling better. She is awake, alert. No fever. No nausea or vomiting. PHYSICAL EXAMINATION: VITAL SIGNS: Blood pressure 111/62, pulse 92, respiratory rate 20, temperature 98.1. LUNGS: No rale. No rhonchi. CARDIOVASCULAR SYSTEM: S1, S2, regular. ABDOMEN: Soft, nontender. Bowel sounds are positive. ASSESSMENT: 1. Chronic kidney disease, on hemodialysis. 2. Diabetes. 3. Hypertension. PLAN: Continue current medication. Monitor the patient. Karlo Streeter MD
--- NOTE | 2018-08-15 07:04 | HP ---
CHIEF COMPLAINT: Weakness, dizziness, and high potassium. HISTORY OF PRESENT ILLNESS: This is a 73-year-old female with history of end-stage renal disease, on hemodialysis three times a week via AV fistula. Her last dialysis s was Sunday. She has chronic anemia, hyperphosphatemia, secondary hypoparathyroidism, hypertension, diabetes, coronary artery disease, status post CABG. The patient claims to be compliant with diet, medications and followup. She did a complete dialysis on Sunday, but Sunday morning she developed nausea, vomiting, generalized weakness, recurrence of urination, palpitation, weakness, dizziness. She was brought into the emergency room. She was found to have fluid overload with orthopnea. She had hyperkalemia with wide QRS complex. The patient was admitted. She underwent an emergency hemodialysis. She feels sick, overall body weak, generalized aches and pain, weakness. She denies any chest pain. She has dyspnea on exertion with some cough. She denies any abdominal pain. She had nausea. No vomiting. She denies any urinary symptoms. PAST MEDICAL HISTORY: Type 2 diabetes, coronary artery disease, status post CABG, hypertension, hyperlipidemia, end-stage renal disease, on hemodialysis. SOCIAL HISTORY: She is nonsmoker, non-ETOH user. CURRENT MEDICATIONS: At home are Tylenol, Renvela, Januvia, Pravachol, Coreg, Sensipar, vitamin D. PHYSICAL EXAMINATION: GENERAL: An elderly female who is relatively stable after dialysis now. VITAL SIGNS: When I examined the patient, blood pressure 95/61, pulse 91, respiratory rate 20, temperature 98.2. SKIN: No rashes. No bruises. No purpura. No petechiae. HEENT: Atraumatic and normocephalic. Negative pallor. Negative jaundice. Extraocular movements are intact. NECK: Supple. No JVD. No lymph node. No thyromegaly. No carotid bruit. CHEST WALL: Bilateral symmetrical expansion. No tenderness. LUNGS: Bilaterally clear. No rales. No rhonchi. CARDIOVASCULAR SYSTEM: S1, S2 regular. No heave. No thrill. No rub. No murmur. ABDOMEN: Soft, nontender. Bowel sounds are positive. RECTAL: Refused. EXTREMITIES: No clubbing, cyanosis. Has +2 pitting edema. CENTRAL NERVOUS SYSTEM: Awake, alert, and oriented x3. Cranial nerves II through XII are normal. Power 5/5 x4. Plantars are downgoing. ASSESSMENT: 1. Congestive heart failure due to fluid overload along with , hyperkalemia and acidosis. The patient is on dialysis and she did do dialysis on Sunday, but despite that the patient has developed symptoms with wide QRS complex. 2. Hypotensive heart with kidney disease. 3. Type 2 diabetes. 4. Hyperlipidemia. PLAN: Admit. Detailed orders are written. Seen and examined. Karlo Streeter MD
[2018-08-15] MEDS: (Novolog) Insulin Aspart, Recombinant 100 u/ml 10 ml vial SC SCH ×3 (07:41→17:16)
[2018-08-15] MEDS ORDERED: Multivitamin Vitamin B Complex (Nephro-Vite) Tab PO SCH (08:00)
[2018-08-15 08:31] LABS: BASO # 0.1 K/uL (0.0-0.2); BASO % 0.7 % (0.0-2.0); EOS # 0.4 K/uL (0.0-0.7); LYMPH # 1.9 K/uL (1.0-4.3); MEAN CORPUSCULAR HEMOGLOBIN 31.1 pg (27.0-31.0); NEUT # 5.7 K/uL (1.8-7.0)
[2018-08-15 08:39] LABS: EOS % 4.5 % (0.0-4.0); LYMPH % 21.4 % (20.0-40.0); MEAN PLATELET VOLUME 9.4 fL (7.2-11.7); MONO # 0.7 K/uL (0.0-0.8); NEUT % 65.4 % (50.0-75.0); RBC 3.23 Mil/uL (3.80-5.20); RED CELL DISTRIBUTION WIDTH 16.8 % (11.5-14.5); WHITE BLOOD COUNT 8.7 K/uL (4.8-10.8)
[2018-08-15 08:49] LABS: HEMOGLOBIN 10.1 g/dL (11.0-16.0); MEAN CELL VOLUME 97.1 fL (81.0-99.0)
[2018-08-15 09:29] VITALS: RESP 16
--- NOTE | 2018-08-15 12:33 | CP.PCM.PN ---
Subjective - Date & Time of Evaluation Date of Evaluation: 08/15/18 Time of Evaluation: 12:32 - Subjective Subjective: Nephrology Consultation Note: Assessment: stable hyperkalemia and wide complex rhythm ? CHF exacerbation with fluid overload Hypertensive Chronic Kidney Disease (I12.0), DKD (E11.22) End stage renal disease (N18.6) dependence on hemodialysis (Z99.2) (TTS) via AVF Anemia (D64.9), Hyperphosphatemia (E83.39), Secondary Hyperparathyroidism (E21.1), HTN (I12.0) Hypermagnesemia CAD s/p CABG lactic acidosis with hyperglycemia and uncontrolled DM Plan: Will plan for HD TTS as ordered. Continue with Nephrovite 1 tab/day. PRBC as needed for anemia. not on ALLYSON with dialysis as last Hb 12.8 Continue with phos binders, last phos level: 7.9 BP control with meds as ordered. Patient not on RAAS ben as with severe hyperkalemia. gave Rx to pt for kayexylate 15 mg 4 days a week (non HD days). low k diet reinforced Glycemic control, Dialysis consistent diet Further work up/management as per primary team Dose meds/antibiotics (if needed) for ESRD status. Avoid fleets enema/magnesium based laxatives. Thanks for allowing me to participate in care of your patient. Will follow patient with you. Please call if any Qs. Dr Ankit Delcid Office: [phone] Chief Complaint; SOB HPI: Pt is a 73 F with hx of ESRD on hemodialysis (TTS) via AVF , last dialysis Sat, chronic anemia, hyperphosphatemia, secondary hyperparathyroidism, hypertension DM, CAD s/p CABG presented with complaints of SOB and found to have fluid overload ? CHF with hyperkalemia and wide complex rhythm which improved with medical management Renal consult requested for ESRD management. pt feels better now ROS: feels better Cardiovascular: No chest pain. Pulmonary: no shortness of breath. has minimal cough. Gastrointestinal: denies abdominal pain No nausea. No vomiting. Genitourinary: No pain while urinating. Denies blood in urine. All other negative except as mentioned in HPI Physical Examination: seen on HD General Appearance: Comfortable, in no acute respiratory distress, co-operative . better appearing Vitals reviewed and noted as below Head; Atraumatic, normocephalic ENT: no ulcers no thrush. Tongue is midline. Oropharynx: no rash or ulcers. EYES: PERRLA, anciteric. EOMI intact Neck; supple no lymphadenopathy, no thyromegaly or bruit Lungs: normal respiratory rate/effort. Breath sounds bilateral clearer Heart: Normal rate. s1s2 normal. No rub or gallop. Extremities: no edema. No varicose veins Neurological: Patient is alert, awake and oriented to person, place and time. No focal deficit. Strength bilateral appropriate and equal Skin: Warm and dry. Normal turgor. No rash. Palpitation: Normal elasticity for age Abdomen: Abdomen is soft. Bowel sounds +. There is no abdominal tenderness, no guarding/rigidity or organomegaly Psych: limited insight and normal affect/mood MSK: no joint tenderness or swelling. Digits and nails normal, no deformity : kidney or bladder not palpable Access: AVF Labs/imaging reviewed. Past medical history, past surgical history, family history, social history, allergy reviewed and noted as below Family Hx: no hx of CKD. Non contributory Objective - Vital Signs/Intake and Output Vital Signs (last 24 hours): Temp Pulse Resp BP Pulse Ox 97.6 F 73 16 109/56 L 97 08/15/18 09:05 08/15/18 11:09 08/15/18 09:05 08/15/18 10:50 08/15/18 09:05 - Medications Medications: Current Medications Acetaminophen (Tylenol 325mg Tab) 650 mg PO Q6 PRN PRN Reason: Fever >100.4 F Carvedilol (Coreg) 3.125 mg PO BID [facility] Last Admin: 08/15/18 10:49 Dose: Not Given Cinacalcet (Sensipar) 30 mg PO DAILY [facility] Last Admin: 08/15/18 10:50 Dose: Not Given Dextrose (Dextrose 50% Inj) 0 ml IVP .STAT PRN; Protocol PRN Reason: Hypoglycemia Protocol Dextrose (Glutose 15) 0 gm PO .ONCE PRN; Protocol PRN Reason: Hypoglycemia Protocol Folic Acid (Folic Acid) 1 mg PO DAILY [facility] Last Admin: 08/15/18 10:49 Dose: Not Given Glucagon (Glucagen Diagnostic Kit) 0 mg IM .STAT PRN; Protocol PRN Reason: Hypoglycemia Protocol Heparin Sodium (Porcine) (Heparin) 5,000 units SC Q12 [facility] Last Admin: 08/15/18 10:49 Dose: Not Given Dextrose (Dextrose 5% In Water 1000 Ml) 1,000 mls @ 0 mls/hr IV .Q0M PRN; Protocol PRN Reason: Hypoglycemia Protocol Insulin Aspart (Novolog) 0 unit SC ACHS [facility]; Protocol Last Admin: 08/15/18 07:41 Dose: Not Given Rosuvastatin Calcium (Crestor) 5 mg PO HS [facility] Last Admin: 08/14/18 22:09 Dose: 5 mg Sevelamer Carbonate (Renvela) 800 mg PO TIDCC [facility] Last Admin: 08/15/18 08:12 Dose: Not Given Vitamin B Complex/Vit C/Folic Acid (Nephro-Rosy) 1 tab PO 0800 [facility] Last Admin: 08/15/18 08:12 Dose: Not Given - Labs Labs: 08/15/18 08:24 08/15/18 08:24 PT 13.8 SECONDS (9.7-12.2) H 08/13/18 09:45 INR 1.3 08/13/18 09:45 APTT 36 SECONDS (21-34) H 08/13/18 09:45
[2018-08-15 13:59] VITALS: BP 116/62; TEMP 97.1; O2SAT 100
[2018-08-15 16:02] VITALS: PULSE 81
--- NOTE | 2018-08-15 17:23 | CP.PCM.PN ---
Subjective - Date & Time of Evaluation Date of Evaluation: 08/15/18 Time of Evaluation: 15:00 - Subjective Subjective: patient seen today after HD , denies any chest pain, sob, dizziness, fever, chills vss - stable Objective - Vital Signs/Intake and Output Vital Signs (last 24 hours): Temp Pulse Resp BP Pulse Ox 97.1 F L 81 16 116/62 100 08/15/18 12:50 08/15/18 15:45 08/15/18 12:50 08/15/18 12:50 08/15/18 12:50 Intake and Output: 08/15/18 08/15/18 06:59 18:59 Intake Total 350 Balance 350 - Medications Medications: Current Medications Acetaminophen (Tylenol 325mg Tab) 650 mg PO Q6 PRN PRN Reason: Fever >100.4 F Carvedilol (Coreg) 3.125 mg PO BID [facility] Last Admin: 08/15/18 17:17 Dose: Not Given Cinacalcet (Sensipar) 30 mg PO DAILY [facility] Last Admin: 08/15/18 10:50 Dose: Not Given Dextrose (Dextrose 50% Inj) 0 ml IVP .STAT PRN; Protocol PRN Reason: Hypoglycemia Protocol Dextrose (Glutose 15) 0 gm PO .ONCE PRN; Protocol PRN Reason: Hypoglycemia Protocol Folic Acid (Folic Acid) 1 mg PO DAILY [facility] Last Admin: 08/15/18 10:49 Dose: Not Given Glucagon (Glucagen Diagnostic Kit) 0 mg IM .STAT PRN; Protocol PRN Reason: Hypoglycemia Protocol Heparin Sodium (Porcine) (Heparin) 5,000 units SC Q12 [facility] Last Admin: 08/15/18 10:49 Dose: Not Given Dextrose (Dextrose 5% In Water 1000 Ml) 1,000 mls @ 0 mls/hr IV .Q0M PRN; Protocol PRN Reason: Hypoglycemia Protocol Insulin Aspart (Novolog) 0 unit SC ACHS [facility]; Protocol Last Admin: 08/15/18 17:16 Dose: 3 units Rosuvastatin Calcium (Crestor) 5 mg PO HS [facility] Last Admin: 08/14/18 22:09 Dose: 5 mg Sevelamer Carbonate (Renvela) 800 mg PO TIDCC [facility] Last Admin: 08/15/18 17:16 Dose: 800 mg Vitamin B Complex/Vit C/Folic Acid (Nephro-Rosy) 1 tab PO 0800 [facility] Last Admin: 08/15/18 08:12 Dose: Not Given - Labs Labs: 08/15/18 08:24 08/15/18 08:24 PT 13.8 SECONDS (9.7-12.2) H 08/13/18 09:45 INR 1.3 08/13/18 09:45 APTT 36 SECONDS (21-34) H 08/13/18 09:45 Assessment and Plan - Assessment and Plan (Free Text) Assessment: A/P 73 y old female with PMhx HTN, HLD, ESRD on HD T,TH,SAT , DM2, who presented to the ED for c/o worsening shortness of breath and fatigue x 3 days patient clinically improved after HD blood culture and urine culture - negative so far a febrile
--- NOTE | 2018-08-15 21:53 | CP.PCM.DIS ---
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8-10.8) 08/15/18 08:24 RBC 3.23 Mil/uL (3.80-5.20) L 08/15/18 08:24 Hgb 10.1 g/dL (11.0-16.0) L D 08/15/18 08:24 Hct 31.4 % (34.0-47.0) L 08/15/18 08:24 MCV 97.1 fL (81.0-99.0) D 08/15/18 08:24 MCH 31.1 pg (27.0-31.0) H 08/15/18 08:24 MCHC 32.0 g/dL (33.0-37.0) L 08/15/18 08:24 RDW 16.8 % (11.5-14.5) H 08/15/18 08:24 Plt Count 122 K/uL (130-400) L 08/15/18 08:24 MPV 9.4 fL (7.2-11.7) 08/15/18 08:24 Neut % (Auto) 65.4 % (50.0-75.0) 08/15/18 08:24 Lymph % (Auto) 21.4 % (20.0-40.0) 08/15/18 08:24 [place] % (Auto) 8.0 % (0.0-10.0) 08/15/18 08:24 Eos % (Auto) 4.5 % (0.0-4.0) H 08/15/18 08:24 Baso % (Auto) 0.7 % (0.0-2.0) 08/15/18 08:24 Neut # (Auto) 5.7 K/uL (1.8-7.0) 08/15/18 08:24 Lymph # (Auto) 1.9 K/uL (1.0-4.3) 08/15/18 08:24 [place] # (Auto) 0.7 K/uL (0.0-0.8) 08/15/18 08:24 Eos # (Auto) 0.4 K/uL (0.0-0.7) 08/15/18 08:24 Baso # (Auto) 0.1 K/uL (0.0-0.2) 08/15/18 08:24 PT 13.8 SECONDS (9.7-12.2) H 08/13/18 09:45 INR 1.3 08/13/18 09:45 APTT 36 SECONDS (21-34) H 08/13/18 09:45 pO2 183 mm/Hg (30-55) H 08/13/18 13:52 VBG pH 7.42 (7.32-7.43) 08/13/18 13:52 VBG pCO2 32 mmHg (40-60) L 08/13/18 13:52 VBG HCO3 22.8 mmol/L 08/13/18 13:52 VBG Total CO2 21.8 mmol/L (22-28) L 08/13/18 13:52 VBG O2 Sat (Calc) 99.6 % (40-65) H 08/13/18 13:52 VBG Base Excess -2.8 mmol/L (0.0-2.0) L 08/13/18 13:52 VBG Potassium 2.5 mmol/L (3.6-5.2) L* 08/13/18 13:52 Sodium 150.0 mmol/l (132-148) H 08/13/18 13:52 Chloride 118.0 mmol/L (98-107) H 08/13/18 13:52 Glucose 87 mg/dl (65-105) 08/13/18 13:52 Lactate 1.0 mmol/L (0.7-2.1) 08/13/18 13:52 Crit Value Called To javier Breen md 08/13/18 13:52 Crit Value Called By rt Kunal 08/13/18 13:52 Crit Value Read Back Y 08/13/18 13:52 Blood Gas Notified Time 1401 08/13/18 13:52 Sodium 137 mmol/L (132-148) 08/15/18 08:24 Potassium 6.3 mmol/L (3.6-5.2) H* D 08/15/18 08:24 Chloride 100 mmol/L (98-107) 08/15/18 08:24 Carbon Dioxide 26 mmol/L (22-30) 08/15/18 08:24 Anion Gap 18 (10-20) 08/15/18 08:24 BUN 75 mg/dL (7-17) H 08/15/18 08:24 Creatinine 8.1 mg/dL (0.7-1.2) H* 08/15/18 08:24 Est GFR ( Amer) 6 08/15/18 08:24 Est GFR (Non-Af Amer) 5 08/15/18 08:24 POC Glucose (mg/dL) 218 mg/dL (65-110) H 08/15/18 16:02 Random Glucose 132 mg/dL (65-105) H D 08/15/18 08:24 Hemoglobin A1c 6.0 % (4.2-6.5) 08/14/18 06:19 Calcium 9.0 mg/dl (8.6-10.4) 08/15/18 08:24 Phosphorus 7.9 mg/dL (2.5-4.5) H 08/13/18 08:54 Magnesium 4.1 mg/dL (1.6-2.3) H 08/13/18 08:54 Total Bilirubin 0.9 mg/dL (0.2-1.3) 08/13/18 08:54 AST 41 U/L (14-36) H 08/13/18 08:54 ALT 20 U/L (9-52) 08/13/18 08:54 Alkaline Phosphatase 129 U/L (38-126) H 08/13/18 08:54 Troponin I < 0.0120 ng/mL (0.00-0.120) 08/13/18 08:54 NT-Pro-B Natriuret Pep 13452 pg/mL (0-900) H 08/13/18 08:54 Total Protein 7.6 g/dL (6.3-8.3) 08/13/18 08:54 Albumin 4.7 g/dL (3.5-5.0) 08/13/18 08:54 Globulin 2.9 gm/dL (2.2-3.9) 08/13/18 08:54 Albumin/Globulin Ratio 1.7 (1.0-2.1) 08/13/18 08:54 Venous Blood Potassium 2.5 mmol/L (3.6-5.2) L* 08/13/18 13:52 Urine Color Yellow (YELLOW) 08/13/18 10:32 Urine Clarity Clear (Clear) 08/13/18 10:32 Urine pH 7.0 (5.0-8.0) 08/13/18 10:32 Ur Specific [place] 1.013 (1.003-1.030) 08/13/18 10:32 Urine Protein 2+ mg/dL (NEGATIVE) H 08/13/18 10:32 Urine Glucose (UA) 1+ mg/dL (Normal) 08/13/18 10:32 Urine Ketones Negative mg/dL (NEGATIVE) 08/13/18 10:32 Urine Blood Negative (NEGATIVE) 08/13/18 10:32 Urine Nitrate Negative (NEGATIVE) 08/13/18 10:32 Urine Bilirubin Negative (NEGATIVE) 08/13/18 10:32 Urine Urobilinogen Normal mg/dL (0.2-1.0) 08/13/18 10:32 Ur Leukocyte Esterase Trace Michelle/uL (Negative) 08/13/18 10:32 Urine WBC (Auto) 4 /hpf (0-5) 08/13/18 10:32 Urine RBC (Auto) 1 /hpf (0-3) 08/13/18 10:32 Ur Squamous Epith Cells 1 /hpf (0-5) 08/13/18 10:32 Urine Bacteria Rare (<OCC) 08/13/18 10:32 Discharge Exam - Head Exam Head Exam: ATRAUMATIC, NORMOCEPHALIC Discharge Plan - Discharge Medications Prescriptions: Carvedilol [Coreg] 3.125 mg PO BID #60 tab Sodium Polystyrene Sulfonate [kayeXALATE Susp] 15 gm PO MWF 30 Days bottle Walker [Rolling Walker] 1 dev XX PRN #1 dev - Follow Up Plan Condition: STABLE Disposition: HOME/ ROUTINE Instructions: Diabetes Exchange Diet, Dialysis Diet , Diabetes Diet , Carvedilol, Sodium Polystyrene Sulfonate, End Stage Kidney Disease (DC), Hyperkalemia (DC) Additional Instructions: Please followup with PMD in 1 week Please continue HD as scheduled T,TH,SAT Please stop taking Januvia until you discussed with your PMD hgb aic done 08/14/18- is 6 Please resume all your home medications Referrals: Karlo Streeter MD [Staff Provider] -
== END 2018-08-15 18:04 | disposition home or self-care (01) | DRG 291 ==
LOC: C.ER 07:31 → C.9E 10:24 → C.6T 15:58
PROVIDERS: ADMIT Internal Medicine; ATTEND Internal Medicine
PROC: 5A1D70Z Performance of Urinary Filtration, Intermittent, Less than 6 Hours Per Day (ICD-10-PCS; principal; 2018-08-13)
DX: I13.2 Hypertensive heart and chronic kidney disease with heart failure and with stage 5 chronic kidney disease, or end stage renal disease (principal); N18.6 End stage renal disease; E87.2 Acidosis; N25.81 Secondary hyperparathyroidism of renal origin; E87.5 Hyperkalemia; I50.9 Heart failure, unspecified; Z99.2 Dependence on renal dialysis; E11.22 Type 2 diabetes mellitus with diabetic chronic kidney disease; E11.65 Type 2 diabetes mellitus with hyperglycemia; E83.39 Other disorders of phosphorus metabolism; E83.41 Hypermagnesemia; Z95.1 Presence of aortocoronary bypass graft; I25.10 Atherosclerotic heart disease of native coronary artery without angina pectoris; E78.00 Pure hypercholesterolemia, unspecified; R26.81 Unsteadiness on feet; Z79.4 Long term (current) use of insulin; D63.1 Anemia in chronic kidney disease